=== PATIENT | female | born 2000 | race Caucasian/White ===

== ENCOUNTER → 2023-02-26 | Outpatient (CLI) | payer MEDICAID, MEDICARE ==
--- NOTE | 2023-02-26 16:44 | Diagnostic Imaging Report ---
INDICATION: patient, survey. TECHNIQUE: Multiple real-time grayscale images were obtained over the gravid uterus. COMPARISON: None FINDINGS: Single live intrauterine fetus is seen measuring 20 weeks 1 day in size with sonographic EDC 07/15/2023. The fetus is in cephalic presentation. Amniotic fluid index is 10.72 cm. Placenta is anterior with no evidence of previa. heart rate is 147 bpm. Maternal adnexa show no free fluid. Cervical length is 4.8 cm. survey demonstrated normal-appearing cord insertion and three-vessel cord. spine appear normal. Four-chamber heart view appeared unremarkable. Intracranial ventricles appear normal. Urinary bladder appeared normal. Stomach appeared normal. There is mild prominence of the renal pelves, now measuring 6 mm. Biometrical measurements are as follows: Biparietal 4.68 cm, age 20 weeks 2 days. Head circumference 17.95 cm, age 20 weeks 3 days. Abdominal circumference 14.82 cm, age 20 weeks 1 days. Femur length 3.12 cm, age 19 weeks 5 days. Sonographic estimate age: 20 weeks 1 days. Sonographic estimated date of delivery: 07/15/2023. Estimated Weight: 323 gm (+/- 48 gm). LMP percentile: 43%. heart rate: 147 beats per minute. number: 1 of 1. IMPRESSION: Single live intrauterine fetus measuring at 20 weeks 1 day in size. There is no detectable abnormalities except for borderline prominence of the renal pelves, consider followup as clinically warranted. Dictated by: Dictated on workstation # [id number]
== END ==
LOC: RAD 14:56
PROVIDERS: ATTEND Nurse Practitioner Women's Health
DX: Z34.02 Encounter for supervision of normal first pregnancy, second trimester (principal); Z3A.20 20 weeks gestation of pregnancy
CPT/HCPCS: 76805